=== PATIENT | female | born 1965 | race Caucasian/White ===

== ENCOUNTER 2023-04-18 15:14 | Inpatient (IN) | payer MEDICARE, MEDICAID, SELFPAY ==
--- NOTE | 2023-04-18 15:23 | ED.C_ITS ---
<Statement entered by Oswaldo Voss DO - 04/18/23 18:25> This patient was seen and managed by the physicians registered dental assistant rda. Per policy of this emergency department hospital I was notified of the patient's need for mental health admission. We did discuss the patient's hyponatremia and this was disclosed to the psychiatrist and a consultation was placed with the hospitalist to comanage. I placed bridge orders as well as transfer orders for this patient per hospital policy. I did not personally see or evaluate this patient however I do agree with the management as outlined in this chart. Documented by User: LAYLA Hilario 04/22/23 13:28 HPI - Psych 2 General: Chief Complaint: Psychiatric Symptoms Stated Complaint: mhe Time Seen by Provider: 04/18/23 15:15 Source: patient Mode of arrival: EMS Limitations: no limitations History of Present Illness: Patient is a 57-year-old female who presents to ED today from [facility] via EMS. Apparently [facility] called the ambulance. She has been at their facility for approximately 3 days. According to report patient is talking off the wall and off of her medications. They state she is manic and a ticking time bomb . They also states she has been somewhat verbally aggressive. Upon arrival patient tells me she has a paranoid schizophrenic. She states that her psychosis is making her psychotic. She says many bizarre things. She reports auditory and visual hallucinations. She talks about wanting meds for her ADHD stating her head and thoughts aren't right . complaint: altered mental status and other (psychosis) Onset (ago): day(s) Duration: constant History of same: Yes Context: recent drug abuse and not taking psychiatric medications Associated psychiatric symptoms: auditory hallucinations and visual hallucinations Associated symptoms: Reports auditory hallucinations and visual hallucinations; Deny depression, homicidal ideation or suicidal ideation Review of Systems 2 Const: Denies: fever(s) or chills Card: Denies: chest pain, palpitations, lightheadedness or syncope Resp: Denies: dyspnea GI: Denies: abdominal pain, nausea, vomiting or diarrhea Skin/Breast: Denies: rash Neuro: Denies: headache(s) Psych: Reports: anxiety, paranoia, visual hallucinations and auditory hallucinations; Denies: depression, hopelessness, suicidal ideation or homicidal ideation [facility] ED 2 PFSH: Medical History (Updated 04/20/23 @ 10:42 by Francois Mesa MD) Osteoarthritis Schizophrenia Surgical History (Updated 04/18/23 @ 19:34 by Vj Damon MD) History of facial surgery History of tonsillectomy Social History (Updated 04/18/23 @ 19:34 by Vj Damon MD) Smoking and tobacco/nicotine status: current every day tobacco/nicotine user Substance/Drug Use: current Other substance/drug use details: Marijuana, recently methamphetamine Physical Exam 2 Const: COMMON NORMALS: no acute distress, patient oriented x3, alert and well nourished GENERAL APPEARANCE: cooperative and appears older than stated age Resp: COMMON NORMALS: normal respiratory effort and clear to auscultation bilaterally AUSCULTATION: clear to auscultation bilaterally Cardio: COMMON NORMALS: regular rate and regular rhythm RATE: regular rate RHYTHM: regular rhythm Neuro: COMMON NORMALS: patient oriented x3 SENSORIUM/ORIENTATION: Yes alert Psych: COMMON NORMALS: mental status grossly normal, cooperative, denies homicidal ideation and denies suicidal ideation APPEARANCE: Yes grossly normal ATTITUDE: Yes bizarre and Yes agitated ACTIVITY/MOTOR BEHAVIOR: Yes appropriate eye contact and No psychomotor agitation SPEECH: Yes Pressured speech present THOUGHT PROCESS: Illogical thought process present A TTENTION/CONCENTRATION: Yes attention grossly impaired MEMORY/COGNITION: Yes memory grossly intact and Yes cognition grossly intact INSIGHT: Fair insight present (Psych) JUDGEMENT: Fair judgement present (Psych) Course 2 Consultations: Consultation #1: Dr. Paul-accepts to [facility] Vital Signs: Vital signs: Vital Signs Temperature 97.8 F 04/22/23 05:54 Pulse Rate 81 04/22/23 05:54 Respiratory Rate 18 04/22/23 05:54 Blood Pressure 115/83 04/22/23 05:54 Pulse Oximetry 95 04/22/23 05:54 Oxygen Delivery Me thod Room Air 04/22/23 05:54 [facility] - Psych Medical Decision Making This patient presented to this emergency department with longstanding history of bipolar disorder who was evaluated for mental health admission. She was noted to have an incidental hyponatremia which unlikely to be related to her current presentation however this will be comanaged by internal medicine and she will be admitted to the mental health services for management of her underlying mental health disorder. Patient will be an admit to NPU to Dr. Paul. I spoke to Dr. Damon who will consult on her given her hyponatremia at 122. Dr. Voss aware of patient and will place admit orders. ES Lab Data 04/18/23 16:02 04/22/23 09:03 Laboratory Results WBC 9.96 10^3/uL (3.29-11.43) 04/18/23 16:02 RBC 4.62 10^6/uL (3.85-5.65) 04/18/23 16:02 Hgb 15.20 g/dL (11.27-16.99) 04/18/23 16:02 Hct 43.0 % (36-47) 04/18/23 16:02 MCV 93.1 fl (85-98) 04/18/23 16:02 MCH 32.9 pg (27-33) 04/18/23 16:02 MCHC 35.3 g/dL (30-55) 04/18/23 16:02 RDW 12.0 % (12.1-15.1) L 04/18/23 16:02 Plt Count 336 10^3/cmm (157-399) 04/18/23 16:02 MPV 7.8 fL (7.4-10.4) 04/18/23 16:02 Neut % (Auto) 64.1 % 04/18/23 16:02 Lymph % (Auto) 26.5 % 04/18/23 16:02 Nash % (Auto) 6.4 % 04/18/23 16:02 Eos % (Auto) 1.6 % 04/18/23 16:02 Baso % (Auto) 1.0 % 04/18/23 16:02 Neut # (Auto) 6.38 10^3/uL (1.8-7.7) 04/18/23 16:02 Lymph # (Auto) 2.6 10^3/uL (0.8-4.8) 04/18/23 16:02 Nash # (Auto) 0.6 10^3/uL (0.2-0.9) 04/18/23 16:02 Eos # (Auto) 0.2 10^3/uL (0.0-0.8) 04/18/23 16:02 Baso # (Auto) 0.1 10^3/uL (0.0-0.1) 04/18/23 16:02 Nucleated RBC % (auto) 0 % 04/18/23 16:02 Nucleated RBCs # 0.0 /100WBC 04/18/23 16:02 Sodium 122 mmol/L (136-145) L 04/18/23 16:02 Potassium 4.5 mmol/L (3.5-5.1) 04/18/23 16:02 Chloride 85 mmol/L (98-107) L 04/18/23 16:02 Carbon Dioxide 26 mmol/L (22-29) 04/18/23 16:02 Anion Gap 15.5 (5-19) 04/18/23 16:02 BUN 7 mg/dL (6-20) 04/18/23 16:02 Creatinine 0.6 mg/dL (0.5-0.9) 04/18/23 16:02 GFR Calculation 102.3 mL/min (90-130) 04/18/23 16:02 Glucose 93 mg/dL (65-115) 04/18/23 16:02 Calculated Osmolality 252 mOsm/kg (285-295) L 04/18/23 16:02 Calcium 9.6 mg/dL (8.5-10.5) 04/18/23 16:02 Total Bilirubin 0.7 mg/dL (0.15-1.2) 04/18/23 16:02 AST 30 U/L (0-32) 04/18/23 16:02 ALT 12 U/L (0-33) 04/18/23 16:02 Alkaline Phosphatase 125 U/L (35-105) H 04/18/23 16:02 Total Protein 7.5 g/dL (6.6-8.7) 04/18/23 16:02 Albumin 4.6 g/dL (3.5-5.2) 04/18/23 16:02 Globulin 2.9 g/dL (1.3-4.6) 04/18/23 16:02 Salicylates < 0.3 mg/dL (3-10) L 04/18/23 16:02 Urine Opiates Screen Negative ng/mL (Negative) 04/18/23 15:46 Acetaminophen < 5.0 ug/mL (10-30) L 04/18/23 16:02 Ur Barbiturates Screen Negative ng/mL (Negative) 04/18/23 15:46 Ur Phencyclidine Scrn Negative ng/mL (Negative) 04/18/23 15:46 Ur Amphetamines Screen Negative ng/mL (Negative) 04/18/23 15:46 U Benzodiazepines Scrn Negative ng/mL (Negative) 04/18/23 15:46 Urine Cocaine Screen Negative ng/mL (Negative) 04/18/23 15:46 U Marijuana (THC) Screen Positive ng/mL (Negative) H 04/18/23 15:46 Ethyl Alcohol < 10 mg/dL (0-10) 04/18/23 16:02 Discharge Plan Discharge Patient Disposition: Admitted As Inpatient Admit Provider: Evelio Paul Clinical Impression: Acute psychosis, Hyponatremia Condition: Stable Coding Level of Care Code ED Account Executive for Chg Fwd Documented by User: Oswaldo Voss DO 04/18/23 18:28 HPI - Psych 2 General: Chief Complaint: Psychiatric Symptoms Stated Complaint: mhe Time Seen by Provider: 04/18/23 15:15 PFSH ED 2 PFSH: Medical History (Updated 04/20/23 @ 10:42 by Francois Mesa MD) Osteoarthritis Schizophrenia Surgical History (Updated 04/18/23 @ 19:34 by Vj Damon MD) History of facial surgery History of tonsillectomy Social History (Updated 04/18/23 @ 19:34 by Vj Damon MD) Smoking and tobacco/nicotine status: current every day tobacco/nicotine user Substance/Drug Use: current Other substance/drug use details: Marijuana, recently methamphetamine Course 2 Vital Signs: Vital signs: Vital Signs Temperature 97.8 F 04/22/23 05:54 Pulse Rate 81 04/22/23 05:54 Respiratory Rate 18 04/22/23 05:54 Blood Pressure 115/83 04/22/23 05:54 Pulse Oximetry 95 04/22/23 05:54 Oxygen Delivery Me thod Room Air 04/22/23 05:54 MDM - Psych Medical Decision Making This patient presented to this emergency department with longstanding history of bipolar disorder who was evaluated for mental health admission. She was noted to have an incidental hyponatremia which unlikely to be related to her current presentation however this will be comanaged by internal medicine and she will be admitted to the mental health services for management of her underlying mental health disorder. Lab Data 04/18/23 16:02 04/22/23 09:03 Laboratory Results WBC 9.96 10^3/uL (3.29-11.43) 04/18/23 16:02 RBC 4.62 10^6/uL (3.85-5.65) 04/18/23 16:02 Hgb 15.20 g/dL (11.27-16.99) 04/18/23 16:02 Hct 43.0 % (36-47) 04/18/23 16:02 MCV 93.1 fl (85-98) 04/18/23 16:02 MCH 32.9 pg (27-33) 04/18/23 16:02 MCHC 35.3 g/dL (30-55) 04/18/23 16:02 RDW 12.0 % (12.1-15.1) L 04/18/23 16:02 Plt Count 336 10^3/cmm (157-399) 04/18/23 16:02 MPV 7.8 fL (7.4-10.4) 04/18/23 16:02 Neut % (Auto) 64.1 % 04/18/23 16:02 Lymph % (Auto) 26.5 % 04/18/23 16:02 Nash % (Auto) 6.4 % 04/18/23 16:02 Eos % (Auto) 1.6 % 04/18/23 16:02 Baso % (Auto) 1.0 % 04/18/23 16:02 Neut # (Auto) 6.38 10^3/uL (1.8-7.7) 04/18/23 16:02 Lymph # (Auto) 2.6 10^3/uL (0.8-4.8) 04/18/23 16:02 Nash # (Auto) 0.6 10^3/uL (0.2-0.9) 04/18/23 16:02 Eos # (Auto) 0.2 10^3/uL (0.0-0.8) 04/18/23 16:02 Baso # (Auto) 0.1 10^3/uL (0.0-0.1) 04/18/23 16:02 Nucleated RBC % (auto) 0 % 04/18/23 16:02 Nucleated RBCs # 0.0 /100WBC 04/18/23 16:02 Sodium 122 mmol/L (136-145) L 04/18/23 16:02 Potassium 4.5 mmol/L (3.5-5.1) 04/18/23 16:02 Chloride 85 mmol/L (98-107) L 04/18/23 16:02 Carbon Dioxide 26 mmol/L (22-29) 04/18/23 16:02 Anion Gap 15.5 (5-19) 04/18/23 16:02 BUN 7 mg/dL (6-20) 04/18/23 16:02 Creatinine 0.6 mg/dL (0.5-0.9) 04/18/23 16:02 GFR Calculation 102.3 mL/min (90-130) 04/18/23 16:02 Glucose 93 mg/dL (65-115) 04/18/23 16:02 Calculated Osmolality 252 mOsm/kg (285-295) L 04/18/23 16:02 Calcium 9.6 mg/dL (8.5-10.5) 04/18/23 16:02 Total Bilirubin 0.7 mg/dL (0.15-1.2) 04/18/23 16:02 AST 30 U/L (0-32) 04/18/23 16:02 ALT 12 U/L (0-33) 04/18/23 16:02 Alkaline Phosphatase 125 U/L (35-105) H 04/18/23 16:02 Total Protein 7.5 g/dL (6.6-8.7) 04/18/23 16:02 Albumin 4.6 g/dL (3.5-5.2) 04/18/23 16:02 Globulin 2.9 g/dL (1.3-4.6) 04/18/23 16:02 Salicylates < 0.3 mg/dL (3-10) L 04/18/23 16:02 Urine Opiates Screen Negative ng/mL (Negative) 04/18/23 15:46 Acetaminophen < 5.0 ug/mL (10-30) L 04/18/23 16:02 Ur Barbiturates Screen Negative ng/mL (Negative) 04/18/23 15:46 Ur Phencyclidine Scrn Negative ng/mL (Negative) 04/18/23 15:46 Ur Amphetamines Screen Negative ng/mL (Negative) 04/18/23 15:46 U Benzodiazepines Scrn Negative ng/mL (Negative) 04/18/23 15:46 Urine Cocaine Screen Negative ng/mL (Negative) 04/18/23 15:46 U Marijuana (THC) Screen Positive ng/mL (Negative) H 04/18/23 15:46 Ethyl Alcohol < 10 mg/dL (0-10) 04/18/23 16:02 No radiology studies performed this visit Discharge Plan Discharge Patient Disposition: Admitted As Inpatient Admit Provider: Evelio Paul Clinical Impression: Acute psychosis, Hyponatremia Condition: Stable Coding Level of Care Code ED Account Executive for Simran Dugan
[2023-04-18 15:32] VITALS: BP 175/120; PULSE 97; RESP 16; TEMP 36.8; O2SAT 98
[2023-04-18 16:11] LABS: Amphetamines Screen Urine Negative (Negative); Barbiturates Screen Urine Negative (Negative); Benzodiazepines Screen Urine Negative (Negative); Cocaine Screen Urine Negative (Negative); Opiate Screen Urine Negative (Negative); PCP Screen Urine Negative (Negative); THC Screen Urine Positive (Negative)
--- NOTE | 2023-04-18 16:21 | PC.PHAR ---
[facility] STAFF STATED PT HAS NOT TAKEN ANY MEDICATION IN THE 3 DAYS SHE HAS BEEN THERE. I PHONED [facility] AND VERIFIED THE MEDICATIONS SHE PICKED UP IN THE LAST 2 MONTHS AND NOTED DATES AND QUANITIES ON HER MED LIST. 04/18/23
[2023-04-18 16:26] LABS: Basophils # 0.1 10^3/uL (0.0-0.1); Eosinophils # 0.2 10^3/uL (0.0-0.8); Eosinophils % 1.6 %; Lymphocytes # 2.6 10^3/uL (0.8-4.8); Lymphocytes % 26.5 %; Mean Corpuscular HGB Conc 35.3 g/dL (30-55); Mean Corpuscular Hemoglobin 32.9 pg (27-33); Mean Corpuscular Volume 93.1 fl (85-98); Mean Platelet Volume 7.8 fL (7.4-10.4); Monocytes # 0.6 10^3/uL (0.2-0.9); Monocytes % 6.4 %; Neutrophils # 6.38 10^3/uL (1.8-7.7); Neutrophils % 64.1 %; Nucleated Red Blood Cells % 0 %; Platelet Count 336 10^3/cmm (157-399); Red Blood Count 4.62 10^6/uL (3.85-5.65); White Blood Count 9.96 10^3/uL (3.29-11.43)
[2023-04-18 16:38] LABS: Alanine Aminotransferase 12 U/L (0-33); Albumin Level 4.6 g/dL (3.5-5.2); Alkaline Phosphatase 125 U/L (35-105); Anion Gap 15.5 (5-19); Aspartate Amino Transferase 30 U/L (0-32); Blood Urea Nitrogen 7 mg/dL (6-20); Calcium 9.6 mg/dL (8.5-10.5); Carbon Dioxide 26 mmol/L (22-29); Chloride 85 mmol/L (98-107); Globulin 2.9 g/dL (1.3-4.6); Glomerular Filtration Rate 102.3 mL/min (90-130); Glucose 93 mg/dL (65-115); Osmolality Calculated 252 mOsm/kg (285-295); Potassium 4.5 mmol/L (3.5-5.1); Sodium 122 mmol/L (136-145); Total Bilirubin 0.7 mg/dL (0.15-1.2); Total Protein 7.5 g/dL (6.6-8.7)
[2023-04-18 16:40] LABS: Acetaminophen < 5.0 ug/mL (10-30); Alcohol Level < 10 mg/dL (0-10); Salicylate < 0.3 mg/dL (3-10)
[2023-04-18 17:16] VITALS: BP 163/77; PULSE 71; RESP 16; TEMP 36.7; O2SAT 96
[2023-04-18 17:45] VITALS: BP 146/91
[2023-04-18] MEDS: ibuprofen 600 mg Tablet PO (19:18)
--- NOTE | 2023-04-18 19:23 | P.CONIM_ITS ---
Providers/Reason For Consult 2 Consulting Physician/Specialty*: Dr Paul, psychiatry Reason for Consult*: hyponatremia Attending Physician: Evelio Paul MD History of Present Illness History of Present Illness Derek Smalls is a 57 year old lady with history of schizophrenia, denies bipolar disorder, methamphetamine use disorder, undergoing rehabilitation at [facility], states that she has not had any in 2 months, but did not seek rehabilitation earlier due to being jailed. Was sent over for evaluation reportedly due to manic symptoms, bizarre ideation, and has not been taking her medications. Hospitalist is consulted by ER due to incidentally noted hyponatremia, sodium 122. She denies being aware of history of hyponatremia in the past. She does state that her appetite has not been good recently, she states any food that she did not think would taste good at [facility] she will just throw in the trash. She has been drinking quite a bit of Mountain Dew. She also states that in the past she used to take 2 mg of digoxin, but here more recently she has been on 5 mg. Review of Systems 2 Const: Denies: fever(s), chills, body aches or malaise ENMT: Denies: throat pain Card: Denies: chest pain, edema, pre-syncope or dyspnea on exertion Resp: Denies: dyspnea, productive cough, change in phlegm color or hemoptysis GI: Denies: abdominal pain, nausea, vomiting, diarrhea, constipation, hematochezia or melena : Denies: flank pain, urinary frequency or hematuria Musc: Denies: back pain, joint swelling or joint redness Skin/Breast: Denies: rash or new lesions Neuro: Denies: headache(s) Medications/Allergies Home Medications Medication Instructions Recorded Confirmed Last Taken Type albuterol sulfate 90 mcg/actuation 2 inh inhalation Q6H PRN Shortness 04/18/23 04/18/23 Unknown History aerosol inhaler Of Breath benztropine 1 mg tablet 1 mg PO BID 04/18/23 04/18/23 Unknown History clonazepam 1 mg tablet 1 mg PO BID 04/18/23 04/18/23 Unknown History pravastatin 10 mg tablet 10 mg PO BEDTIME 04/18/23 04/18/23 Unknown History thiothixene 5 mg capsule 5 mg PO TID 04/18/23 04/18/23 Unknown History Allergies Allergy/AdvReac Type Severity Reaction Status Date / Time acetaminophen [From Talacen] Allergy Unknown Unverified 04/18/23 19:20 pentazocine [From Talacen] Allergy Unknown Unverified 04/18/23 19:20 topiramate [From Topamax] Allergy Unknown Unverified 04/18/23 19:20 ibuprofen AdvReac Mild Ulcers Unverified 04/18/23 19:20 Current Medications Generic Name Dose Route Start Last Admin Trade Name Freq PRN Reason Stop Dose Admin Ibuprofen 600 mg 04/18/23 18:29 04/18/23 19:18 Ibuprofen 600 Mg Tablet PO 600 mg Q6H PRN Administration MODERATE PAIN PFSH Acute 2 PFSH: Medical History (Updated 04/18/23 @ 19:32 by Vj Damon MD) Osteoarthritis Schizophrenia Surgical History (Updated 04/18/23 @ 19:34 by Vj Damon MD) History of facial surgery History of tonsillectomy Social History (Updated 04/18/23 @ 19:34 by Vj Damon MD) Smoking and tobacco/nicotine status: current every day tobacco/nicotine user Substance/Drug Use: current Other substance/drug use details: Marijuana, recently methamphetamine Vitals/I&O/Wt Last Vital Signs Temp 98.0 F 04/18/23 17:16 Pulse 71 04/18/23 17:16 Resp 16 04/18/23 17:16 BP 146/91 04/18/23 17:45 Pulse Ox 96 04/18/23 17:16 O2 Del Method Room Air 04/18/23 17:16 Physical Exam 2 Narrative: Sitting up in bed. Finishing up admission conversation with nursing staff. Const: COMMON NORMALS: patient oriented x3 and alert GENERAL APPEARANCE: c ooperative ORIENTATION/CONSCIOUSNESS: Yes awake HENMT: COMMON NORMALS: oropharynx normal Neck/C-Spine: COMMON NORMALS: no JVD Resp: COMMON NORMALS: normal respiratory effort and clear to auscultation bilaterally AUSCULTATION: clear to auscultation bilaterally Cardio: COMMON NORMALS: no JVD, regular rhythm, S1 normal heart sound present, S2 normal heart sound present and No murmurs present (Cardio) RHYTHM: regular rhythm HEART SOUNDS: S1 normal heart sound present and S2 normal heart sound present GI: INSPECTION: No abdominal distension Neuro: COMMON NORMALS: patient oriented x3 and moves all extremities S ENSORIUM/ORIENTATION: Yes alert Data 04/18/23 16:02 04/18/23 16:02 A&P Assessment and plan (1) Acute psychosis: Being admitted by psychiatry for additional assessment and management. (2) Hyponatremia: Incidentally noted severe hyponatremia, 122. Appears asymptomatic. Discussed with her risks of hyponatremia. Reviewed vitals, CBC, CMP, UDS. Reviewed ER PA and physician notes, discussed with ER provider. Seems possibly combination of low solute diet as she has not had good appetite, has been drinking a lot of Mountain Dew, possible SIADH with thiothixene. She states her dose was recently increased up to 5 mg, previously taking 2 mg. Recommend caution with antipsychotics, will monitor sodium. Regular diet. Nutritional supplements as tolerating. Discussed with her sodium chloride tablets. Avoid overly rapid sodium rise due to unknown chronicity. Risk of ODS. Will follow-up sodium level. Discouraged excessive liquid consumption alone. Plan Smoking addiction: Encourage cessation. She request for nicotine patch. Ordered. Lozenges as needed. Diagnoses Acute psychosis F23 Hyponatremia E87.1
[2023-04-18] MEDS: nicotine 4 mg lozenge MUCOUS MEM (20:22)
[2023-04-18] MEDS: sodium chloride 1 gm Tablet PO (20:33)
[2023-04-18] MEDS: CLONazepam 1 mg Tablet PO (20:33)
[2023-04-18] MEDS: atorvastatin 40 mg Tablet 20 MG PO (20:33)
[2023-04-18 21:08] VITALS: PULSE 67; RESP 18; TEMP 36.6; O2SAT 96
--- NOTE | 2023-04-18 21:30 | PC.NURSE ---
Pt on assessment started making bizarre statements such [facility] they took my tentacle and shoved it up my nostril because they didnt want me to take it off my leg. Pt denies avh right now but admits that when her psychosis gets out of control the voices start getting louder. Pt took her HS meds then laid down in room. no distress noted.
[2023-04-19 06:00] VITALS: BP 103/66; PULSE 118; RESP 16; O2SAT 96
[2023-04-19] MEDS: ibuprofen 600 mg Tablet PO ×3 (06:16→20:17)
[2023-04-19] MEDS: nicotine 4 mg lozenge MUCOUS MEM ×2 (06:24→16:59)
[2023-04-19] MEDS: magnesium hydroxide 30 mL UDC PO (06:47)
[2023-04-19] MEDS: benztropine 1 mg Tablet PO ×2 (07:10→17:35)
[2023-04-19] MEDS: sodium chloride 1 gm Tablet PO ×2 (07:11→17:35)
[2023-04-19] MEDS: CLONazepam 1 mg Tablet PO ×2 (07:11→17:35)
[2023-04-19 08:00] LABS: Urine Random Sodium 16 mmol/L
[2023-04-19] MEDS: nicotine 21 mg Patch 1 PATCH TRANSDERMA (08:41)
--- NOTE | 2023-04-19 10:18 | PC.NURSE ---
CALLED AND LEFT MESSAGE WITH [facility] FOR PT HOME MEDICATION. WAITING FOR CALL BACK.
[2023-04-19] MEDS: acetaminophen 325 mg Tablet 650 MG PO ×2 (10:43→16:18)
--- NOTE | 2023-04-19 10:57 | PC.NURSE ---
RECIEVED CALL FROM [facility] SPECIALIST MALVIN PEREZ FROM [facility] ABOUT PT MEDICATION THIOTHIXENE 10MG TID PRESCRIBED BY DR. LEWIS. IF WE CAN SEND A STAFF MEMBER TO SIGN OUT MEDICATION TO BRING TO HOSPITAL THAT WOULD BE ACCEPTABLE TO THEIR FACILITY. SENDING PLASTIC PARTS FABRICATOR TO [facility].
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
[2023-04-19 14:00] VITALS: BP 137/92; PULSE 71; RESP 16; TEMP 36.8; O2SAT 97
--- NOTE | 2023-04-19 14:16 | P.PN_ITS ---
Subjective 2 Subjective: She states she is doing well. She had a good night and got some rest. Ambulating in the hallway. Denies any new symptoms. Vitals/I&O/Wt Last Vital Signs Temp 97.8 F 04/18/23 21:08 Pulse 118 H 04/19/23 06:00 Resp 16 04/19/23 06:00 BP 103/66 04/19/23 06:00 Pulse Ox 96 04/19/23 06:00 O2 Del Method Room Air 04/18/23 18:32 Physical Exam 2 Const: COMMON NORMALS: patient oriented x3 and alert GENERAL APPEARANCE: c ooperative ORIENTATION/CONSCIOUSNESS: Yes awake HENMT: COMMON NORMALS: oropharynx normal Neuro: COMMON NORMALS: patient oriented x3 and moves all extremities S ENSORIUM/ORIENTATION: Yes alert Data 04/18/23 16:02 04/18/23 16:02 A&P Assessment and plan (1) Acute psychosis: Being admitted by psychiatry for additional assessment and management. (2) Hyponatremia: Still appears asymptomatic. Reviewed this morning's blood draw clotted off. Repeat lab obtained, reviewed. Received results sodium is 118. Reviewing her medications and psychiatry note, looks like she was restarted on the same dose of thiothixene. Discussed with psychiatrist, current medication will be sought. Reviewed urine sodium, returning low at 16, again likely secondary to low solute intake. Increase sodium chloride tablets to 2 g daily. Will additionally start her on 15 g of urea, recheck sodium tonight before the morning check. Seems possibly combination of low solute diet as she has not had good appetite, has been drinking a lot of Mountain Dew, possible SIADH with thiothixene. She states her dose was recently increased up to 5 mg, previously taking 2 mg. Recommend caution with antipsychotics, will monitor sodium. Regular diet. Nutritional supplements as tolerating. Avoid overly rapid sodium rise due to unknown chronicity. Risk of ODS. Will follow-up sodium level. Discouraged excessive liquid consumption alone. Plan Smoking addiction: Encourage cessation. She request for nicotine patch. Ordered. Lozenges as needed. Attestations 2 Medical Necessity Statement*: Continue admission for assessment and management of acute psychosis, severe hyponatremia. Diagnoses Acute psychosis F23 Hyponatremia E87.1
[2023-04-19 14:46] LABS: Alanine Aminotransferase 14 U/L (0-33); Alkaline Phosphatase 108 U/L (35-105); Blood Urea Nitrogen 6 mg/dL (6-20); Calcium 9.1 mg/dL (8.5-10.5); Carbon Dioxide 25 mmol/L (22-29); Chloride 86 mmol/L (98-107); Globulin 2.3 g/dL (1.3-4.6); Glomerular Filtration Rate 102.3 mL/min (90-130); Glucose 81 mg/dL (65-115); Osmolality Calculated 243 mOsm/kg (285-295); Total Bilirubin 0.5 mg/dL (0.15-1.2); Total Protein 6.3 g/dL (6.6-8.7)
[2023-04-19 14:54] LABS: Aspartate Amino Transferase 45 U/L (0-32)
[2023-04-19 14:56] LABS: Sodium 118 mmol/L (136-145)
--- NOTE | 2023-04-19 15:09 | PC.NURSE ---
notified DR. Colon AND DR. LANTIGUA OF PT SODIUM LEVEL BEING 118. DR. COLON DISCONTINUED THIOTHIXENE 5MG PO.
[2023-04-19] MEDS: OLANZapine 5 mg ODT PO (15:22)
[2023-04-19] MEDS: urea 15 gm Powder PO (15:26)
[2023-04-19] MEDS: haloperidol 5 mg Tablet PO (16:19)
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
[2023-04-19 19:34] VITALS: BP 138/89; PULSE 67; RESP 17; TEMP 36.7; O2SAT 96
[2023-04-19] MEDS: atorvastatin 40 mg Tablet 20 MG PO (20:14)
[2023-04-19 21:07] LABS: Sodium 125 mmol/L (136-145)
[2023-04-20 06:00] VITALS: BP 100/58; PULSE 100; RESP 18; TEMP 36.7; O2SAT 94
[2023-04-20] MEDS: nicotine 4 mg lozenge MUCOUS MEM ×8 (06:30→21:35)
[2023-04-20] MEDS: CLONazepam 1 mg Tablet PO ×2 (07:51→17:09)
[2023-04-20] MEDS: benztropine 1 mg Tablet PO ×2 (07:51→17:09)
[2023-04-20] MEDS: sodium chloride 1 gm Tablet PO ×2 (07:52→17:09)
[2023-04-20] MEDS: ibuprofen 600 mg Tablet PO ×3 (07:58→21:34)
--- NOTE | 2023-04-20 11:03 | P.NPUPN_ITS ---
Subjective NPU 2 Subjective: Patient presented today reporting that she is feeling all right. She then had some fairly significant outbursts where she was frustrated about not getting her thiothixene even though explained concerns that it was leading to her significant hyponatremia. We discussed the risks, benefits and alternatives of Geodon and seeing if that would have less of an impact on her sodium and she understood and agreed to proceed as is documented in this note. We discussed the fact that we would not be able to talk about discharge until her sodium was at a safe place with most recent lab result 125. Mental Status Exam 2 MSE Comments: This is a overweight white female looking older than her stated age in hospital scrubs with limited grooming and eye contact. No abnormal movements except for psychomotor agitation. Somewhat cooperative with exam in mild to moderate distress. Speech was normal rate increased volume. Mood described as not good, affect congruent. Thought process linear. Thought content: Patient denied suicidal or homicidal ideation, there were no delusions reported but likely paranoia and persecutory delusions noted, she endorsed having some auditory and visual hallucinations. Attention and concentration were limited and memory seem to mostly reliable but none were formally tested. She is alert and oriented times person and place. Insight, judgment and impulse control are impaired. Vitals/I&O/Wt Last Vital Signs Temp 98.0 F 04/20/23 06:00 Pulse 100 04/20/23 06:00 Resp 18 04/20/23 06:00 BP 100/58 04/20/23 06:00 Pulse Ox 94 04/20/23 06:00 O2 Del Method Room Air 04/20/23 06:00 Weight last 48 hrs Weight 60.838 kg Data NPU 04/18/23 16:02 04/21/23 07:26 A&P Assessment and plan (1) Acute psychosis: (2) Hyponatremia: (3) History of schizophrenia: Plan This is a 57-year-old white female with a long history of psychosis and reported schizophrenia with genetic loading for mental health and addiction issues who presents reporting having been on her medication but looking like she has not been taking it regularly based on the numbers with significant hyponatremia and confusion. Symptoms. 1. Encourage individual, group and milieu therapy. 2. Recommend sober living treatment at the highest level of care to which the patient is willing to commit. 3. Continue q-15 minute checks for safety.? 4.? Continue current medication. Except discontinued thiothixene and started Geodon 20 mg daily with a plan to titrate to effect. 5.? Appreciate hospitalist consult and will follow recommendations for treatment of her hyponatremia as indicated. Involuntary Hold Information 2 96 Hour Hold: 96 Hour Involuntary Admission: No Attestations NPU 2 Medical Necessity Statement*: Inpatient hospitalization is medically necessary and deemed to be the clinically appropriate intervention at this time. The patient will be evaluated and medications will be initiated and titrated upwards as clinically indicated. His likely length of stay is 3-5 days. Coding Level of Care Code Acute Code for g Fwd Diagnoses Acute psychosis F23 Hyponatremia E87.1 History of schizophrenia Z86.59
[2023-04-20] MEDS: OLANZapine 5 mg ODT PO (11:11)
[2023-04-20 14:00] VITALS: BP 165/103; PULSE 68; RESP 16; TEMP 36.8; O2SAT 99
[2023-04-20] MEDS: acetaminophen 325 mg Tablet 650 MG PO (14:06)
--- NOTE | 2023-04-20 14:27 | P.PN_ITS ---
Subjective 2 Subjective: Appetite has not been the best but she ate about half of her meal today. She states she was not quite honest and did not take her thiothixene quite as prescribed, and that she was taking it only maybe once daily. She states she has been hearing voices, up to 10 different ones. Vitals/I&O/Wt Last Vital Signs Temp 98.0 F 04/20/23 06:00 Pulse 100 04/20/23 06:00 Resp 18 04/20/23 06:00 BP 100/58 04/20/23 06:00 Pulse Ox 94 04/20/23 06:00 O2 Del Method Room Air 04/20/23 06:00 Weight last 48 hrs Weight 60.838 kg Physical Exam 2 Const: COMMON NORMALS: patient oriented x3 and alert GENERAL APPEARANCE: c ooperative ORIENTATION/CONSCIOUSNESS: Yes awake HENMT: COMMON NORMALS: oropharynx normal Neuro: COMMON NORMALS: patient oriented x3 and moves all extremities S ENSORIUM/ORIENTATION: Yes alert Data 04/18/23 16:02 04/19/23 20:30 A&P Assessment and plan (1) Acute psychosis: Being assessed and managed by psychiatry for additional assessment and management. (2) Hyponatremia: Appetite not the best but she did try Her meal today. Encouraged her to try to improve oral intake. Added protein shakes. Sodium reviewed, noted with improvement up to 125. Continue sodium chloride, urea for treatment of severe hyponatremia, follow-up sodium levels. Discussed with psychiatry as well to be mindful of antipsychotics contributing to hyponatremia. She states that she was not quite honest about taking her thiothixene and was taking it only maybe once a day. At this time suspect mostly her hyponatremia is likely secondary to low solute diet. However, continue to monitor. Reviewed psychiatry note. Recheck chemistry requested. Continues with admission. Reviewed pillowcase folder note. Avoid overly rapid sodium rise due to unknown chronicity. Risk of ODS. Will follow-up sodium level. Discouraged excessive liquid consumption alone. Plan Smoking addiction: Encourage cessation. Nicotine patch, lozenges as needed. Attestations 2 Medical Necessity Statement*: Continue admission for assessment management of psychosis, severe hyponatremia. Diagnoses Acute psychosis F23 Hyponatremia E87.1
[2023-04-20] MEDS: ziprasidone hcl 20 mg Capsule PO (14:32)
[2023-04-20 19:32] VITALS: BP 122/82; PULSE 70; RESP 16; TEMP 36.3; O2SAT 95
[2023-04-20] MEDS: atorvastatin 40 mg Tablet 20 MG PO (19:37)
[2023-04-20] MEDS: efferdent effervescent 1 EACH DENTAL (20:59)
[2023-04-20] MEDS: trazodone 50 mg Tablet PO (21:47)
[2023-04-20] MEDS: hyDROXYzine 25 mg Capsule 50 MG PO (22:03)
[2023-04-21] MEDS: nicotine 4 mg lozenge MUCOUS MEM ×7 (05:55→22:08)
[2023-04-21] MEDS: fixodent 39 gm Tube 1 APPLIC DENTAL (05:57)
[2023-04-21 06:00] VITALS: BP 103/71; PULSE 118; RESP 18; O2SAT 96
[2023-04-21] MEDS: hyDROXYzine 25 mg Capsule 50 MG PO (06:14)
[2023-04-21] MEDS: sodium chloride 1 gm Tablet PO ×3 (07:59→19:38)
[2023-04-21] MEDS: benztropine 1 mg Tablet PO ×2 (07:59→17:39)
[2023-04-21] MEDS: ibuprofen 600 mg Tablet PO ×2 (08:00→16:14)
[2023-04-21] MEDS: CLONazepam 1 mg Tablet PO ×2 (08:00→17:39)
--- NOTE | 2023-04-21 08:00 | PC.NURSE ---
shift assessment pleasant affect, stated she is not SI/HI but did say she's tired of the voices all the time
[2023-04-21 08:06] LABS: Alanine Aminotransferase 16 U/L (0-33); Albumin Level 4.7 g/dL (3.5-5.2); Alkaline Phosphatase 118 U/L (35-105); Blood Urea Nitrogen 9 mg/dL (6-20); Calcium 10.2 mg/dL (8.5-10.5); Carbon Dioxide 24 mmol/L (22-29); Chloride 90 mmol/L (98-107); Globulin 2.3 g/dL (1.3-4.6); Glomerular Filtration Rate 85.6 mL/min (90-130); Glucose 101 mg/dL (65-115); Osmolality Calculated 259 mOsm/kg (285-295); Sodium 125 mmol/L (136-145); Total Bilirubin 0.4 mg/dL (0.15-1.2)
[2023-04-21 08:12] LABS: Anion Gap 16.1 (5-19); Aspartate Amino Transferase 39 U/L (0-32); Potassium 5.1 mmol/L (3.5-5.1)
--- NOTE | 2023-04-21 09:54 | P.NPUPN_ITS ---
Subjective NPU 2 Subjective: Patient presented today reporting that she is feeling like things are going better. She continues to be frustrated with the medication change reported she has been on the thiothixene for 3 decades. We discussed the continued hyponatremia of unknown etiology and she frustratingly said that we should return to thiothixene and just let her take salt tablets. We discussed that she was struggling with adherence with the thiothixene so depending on her to take a salt tablet to have her sodium be in an even reasonable place would not be acceptable. Plus we discussed that given her lack of adherence to the thiothixene is a somewhat limited chance that it is the cause but definitely not the sole cause of this challenge. Mental Status Exam 2 MSE Comments: This is a overweight white female looking older than her stated age in hospital scrubs with limited grooming and eye contact. No abnormal movements except for psychomotor agitation. Somewhat cooperative with exam in mild distress. Speech was normal rate and volume. Mood described as a little better, affect congruent. Thought process linear. Thought content: Patient denied suicidal or homicidal ideation, there were no delusions reported but likely paranoia and persecutory delusions noted, she endorsed having some auditory and visual hallucinations. Attention and concentration were limited and memory seem to mostly reliable but none were formally tested. She is alert and oriented times person and place. Insight, judgment and impulse control are impaired. Vitals/I&O/Wt Last Vital Signs Temp 97.3 F L 04/20/23 19:32 Pulse 118 H 04/21/23 06:00 Resp 18 04/21/23 06:00 BP 103/71 04/21/23 06:00 Pulse Ox 96 04/21/23 06:00 O2 Del Method Room Air 04/20/23 14:00 Weight last 48 hrs Weight 60.838 kg Data NPU 04/18/23 16:02 04/21/23 07:26 A&P Assessment and plan (1) Acute psychosis: (2) Hyponatremia: (3) History of schizophrenia: Plan This is a 57-year-old white female with a long history of psychosis and reported schizophrenia with genetic loading for mental health and addiction issues who presents reporting having been on her medication but looking like she has not been taking it regularly based on the numbers with significant hyponatremia and confusion. Symptoms. 1. Encourage individual, group and milieu therapy. 2. Recommend sober living treatment at the highest level of care to which the patient is willing to commit. 3. Continue q-15 minute checks for safety.? 4.? Continue current medication. Except discontinued thiothixene and start Geodon 20 mg p.o. twice daily with a plan to titrate to effect. 5.? Appreciate hospitalist consult and will follow recommendations for treatment of her hyponatremia as indicated. Involuntary Hold Information 2 96 Hour Hold: 96 Hour Involuntary Admission: No Attestations NPU 2 Medical Necessity Statement*: Inpatient hospitalization is medically necessary and deemed to be the clinically appropriate intervention at this time. The patient will be evaluated and medications will be initiated and titrated upwards as clinically indicated. His likely length of stay is 3-5 days. Coding Level of Care Code Acute Code for [facility] Diagnoses Acute psychosis F23 Hyponatremia E87.1 History of schizophrenia Z86.59
[2023-04-21 11:48] LABS: Potassium, Radom Urine 23 mmol/L
[2023-04-21 11:51] LABS: Urine Random Chloride 17 mmol/L; Urine Random Sodium 15 mmol/L
[2023-04-21 14:00] VITALS: BP 121/72; PULSE 86; RESP 16; TEMP 36.6; O2SAT 97
--- NOTE | 2023-04-21 15:40 | PC.NURSE ---
CONTACT INFO MIRTA REIS (SON) [phone] SON MIRTA LIVES IN [place], STATED HIS MOM HAS BEEN LIKE THIS ALL HIS LIFE, DRINKING & TAKING ANY PILLS SHE CAN GET HER HANDS ON TO GET A HIGH SAID SHE'S BEEN TO SEVERAL HOSPITALS INCLUDING [facility], [facility], [facility]. SON STATED HE FEELS LIKE HIS MOM JUMPS FROM DOCTOR TO DOCTOR TO GET THE PILLS SHE WANTS, NEVER GIVING THE SAME STORY TO EACH FACILITY SHE'S VISITED. WOULD LIKE US TO REACH OUT AND REQUEST RECORDS FROM OTHER HOSPITALS TO GET COLLABORATIVE INFORMATION & GET HER ON THE RIGHT MEDS SHE NEEDS. OFFERED TO LET SON SPEAK TO [employer], HE DENIED WANTING TO LEAVE THEM A MESSAGE AT THIS TIME.
[2023-04-21] MEDS: acetaminophen 325 mg Tablet 650 MG PO (18:30)
[2023-04-21] MEDS: atorvastatin 40 mg Tablet 20 MG PO (19:38)
[2023-04-21 19:39] VITALS: BP 136/93; PULSE 79; RESP 18; TEMP 36.6; O2SAT 99
[2023-04-22 05:54] VITALS: BP 115/83; PULSE 81; RESP 18; TEMP 36.6; O2SAT 95
[2023-04-22] MEDS: nicotine 4 mg lozenge MUCOUS MEM ×6 (06:00→19:32)
[2023-04-22] MEDS: fixodent 39 gm Tube 1 APPLIC DENTAL (06:17)
[2023-04-22] MEDS: ibuprofen 600 mg Tablet PO ×2 (06:35→14:56)
[2023-04-22] MEDS: ziprasidone hcl 20 mg Capsule PO ×2 (07:05→17:06)
[2023-04-22] MEDS: benztropine 1 mg Tablet PO ×2 (07:05→17:06)
[2023-04-22] MEDS: CLONazepam 1 mg Tablet PO ×2 (07:05→17:06)
[2023-04-22] MEDS: sodium chloride 1 gm Tablet PO ×3 (07:05→19:32)
--- NOTE | 2023-04-22 07:31 | P.NPUPN_ITS ---
Subjective NPU 2 Subjective: Patient presented today reporting that she is doing a little better. She reports that she wants to get out of here sooner rather than later and return to [facility]. We discussed as getting in a better direction with her sodium being 127 but they are still being room to go. She denied any issues with the Geodon and we discussed that we would consider titrating prior to her leaving back to [facility]. She denied any other issues. Mental Status Exam 2 MSE Comments: This is a overweight white female looking older than her stated age in hospital scrubs with limited grooming and eye contact. No abnormal movements except for psychomotor agitation. Somewhat cooperative with exam in mild distress. Speech was normal rate and volume. Mood described as a little better, affect congruent. Thought process linear. Thought content: Patient denied suicidal or homicidal ideation, there were no delusions reported but likely paranoia and persecutory delusions noted, she endorsed having some auditory and visual hallucinations. Attention and concentration were limited and memory seem to mostly reliable but none were formally tested. She is alert and oriented times person and place. Insight, judgment and impulse control are impaired. Vitals/I&O/Wt Last Vital Signs Temp 97.8 F 04/22/23 05:54 Pulse 81 04/22/23 05:54 Resp 18 04/22/23 05:54 BP 115/83 04/22/23 05:54 Pulse Ox 95 04/22/23 05:54 O2 Del Method Room Air 04/22/23 05:54 Data NPU 04/18/23 16:02 04/23/23 07:05 A&P Assessment and plan (1) Acute psychosis: (2) Hyponatremia: (3) History of schizophrenia: Plan This is a 57-year-old white female with a long history of psychosis and reported schizophrenia with genetic loading for mental health and addiction issues who presents reporting having been on her medication but looking like she has not been taking it regularly based on the numbers with significant hyponatremia and confusion. Symptoms. 1. Encourage individual, group and milieu therapy. 2. Recommend sober living treatment at the highest level of care to which the patient is willing to commit. 3. Continue q-15 minute checks for safety.? 4.? Continue current medication. Except discontinued thiothixene and start Geodon 20 mg p.o. twice daily with a plan to titrate to effect. 5.? Appreciate hospitalist consult and will follow recommendations for treatment of her hyponatremia as indicated. Involuntary Hold Information 2 96 Hour Hold: 96 Hour Involuntary Admission: No Attestations NPU 2 Medical Necessity Statement*: Inpatient hospitalization is medically necessary and deemed to be the clinically appropriate intervention at this time. The patient will be evaluated and medications will be initiated and titrated upwards as clinically indicated. His likely length of stay is 2-4 days. Coding Level of Care Code Acute Code for [facility] Diagnoses Acute psychosis F23 Hyponatremia E87.1 History of schizophrenia Z86.59
[2023-04-22] MEDS: urea 15 gm Powder PO (07:50)
[2023-04-22 09:40] LABS: Alanine Aminotransferase 14 U/L (0-33); Albumin Level 4.7 g/dL (3.5-5.2); Alkaline Phosphatase 109 U/L (35-105); Anion Gap 16.4 (5-19); Aspartate Amino Transferase 31 U/L (0-32); Blood Urea Nitrogen 22 mg/dL (6-20); Calcium 10.1 mg/dL (8.5-10.5); Carbon Dioxide 26 mmol/L (22-29); Chloride 89 mmol/L (98-107); Globulin 2.6 g/dL (1.3-4.6); Glomerular Filtration Rate 102.3 mL/min (90-130); Glucose 97 mg/dL (65-115); Osmolality Calculated 267 mOsm/kg (285-295); Potassium 4.4 mmol/L (3.5-5.1); Sodium 127 mmol/L (136-145); Total Bilirubin 0.3 mg/dL (0.15-1.2); Total Protein 7.3 g/dL (6.6-8.7)
[2023-04-22] MEDS: acetaminophen 325 mg Tablet 650 MG PO ×2 (12:09→17:06)
[2023-04-22 14:00] VITALS: BP 124/68; PULSE 81; RESP 20; TEMP 37; O2SAT 98
--- NOTE | 2023-04-22 18:19 | XRR_ITS ---
PROCEDURE INFORMATION: Exam: XR Left Hip Exam date and time: 04/22/2023 7:29 PM Age: 57 years old Clinical indication: Hip pain; Left hip TECHNIQUE: Imaging protocol: Radiologic exam of the left hip. Views: 2 or 3 views hip with pelvis when performed. COMPARISON: No relevant prior studies available. FINDINGS: Bones/joints: No acute fracture or dislocation. Small inferior femoroacetabular osteophytes. Soft tissues: Unremarkable. XR/XR hip LT 2-3V wo/w pel* [id number] IMPRESSION: No acute fracture or dislocation. Mild left hip osteoarthritis.
[2023-04-22] MEDS: atorvastatin 40 mg Tablet 20 MG PO (19:32)
[2023-04-22 19:56] VITALS: BP 163/94; PULSE 106; RESP 16; TEMP 36.7; O2SAT 97
[2023-04-23] MEDS: ibuprofen 600 mg Tablet PO ×2 (04:59→18:20)
[2023-04-23] MEDS: fixodent 39 gm Tube 1 APPLIC DENTAL (05:01)
[2023-04-23] MEDS: nicotine 4 mg lozenge MUCOUS MEM ×6 (06:53→20:17)
[2023-04-23] MEDS: acetaminophen 325 mg Tablet 650 MG PO (07:13)
[2023-04-23] MEDS: urea 15 gm Powder PO (07:14)
[2023-04-23] MEDS: sodium chloride 1 gm Tablet PO ×3 (07:14→20:17)
[2023-04-23] MEDS: ziprasidone hcl 20 mg Capsule PO (07:14)
[2023-04-23] MEDS: benztropine 1 mg Tablet PO ×2 (07:14→17:37)
[2023-04-23] MEDS: CLONazepam 1 mg Tablet PO ×2 (07:17→18:06)
[2023-04-23 07:37] LABS: Alanine Aminotransferase 13 U/L (0-33); Albumin Level 4.5 g/dL (3.5-5.2); Alkaline Phosphatase 101 U/L (35-105); Anion Gap 14.4 (5-19); Aspartate Amino Transferase 23 U/L (0-32); Blood Urea Nitrogen 13 mg/dL (6-20); Calcium 10.2 mg/dL (8.5-10.5); Carbon Dioxide 25 mmol/L (22-29); Chloride 96 mmol/L (98-107); Globulin 2.7 g/dL (1.3-4.6); Glomerular Filtration Rate 85.6 mL/min (90-130); Glucose 102 mg/dL (65-115); Osmolality Calculated 272 mOsm/kg (285-295); Potassium 4.4 mmol/L (3.5-5.1); Sodium 131 mmol/L (136-145); Total Bilirubin 0.2 mg/dL (0.15-1.2); Total Protein 7.2 g/dL (6.6-8.7)
[2023-04-23 07:55] LABS: Osmolality Urine 128 mOsm/kg (50-1200)
[2023-04-23 14:00] VITALS: BP 129/95; PULSE 83; RESP 20; TEMP 36.6; O2SAT 97
--- NOTE | 2023-04-23 15:22 | P.NPUPN_ITS ---
Subjective NPU 2 Subjective: Patient presented today reporting that she is doing okay. She reported having auditory hallucinations and feeling [place]. We discussed this being the first day that she had the full dose of increased Geodon to 40 mg p.o. twice daily. We discussed this being a process that Dr. Paul here tomorrow to monitor her improvement. We discussed the fact that her sodium continues to improve. Mental Status Exam 2 MSE Comments: This is a overweight white female looking older than her stated age in hospital scrubs with limited grooming and eye contact. No abnormal movements except for decreasing psychomotor agitation. More cooperative with exam in mild distress. Speech was normal rate and volume. Mood described as a little better, affect congruent. Thought process linear. Thought content: Patient denied suicidal or homicidal ideation, there were no delusions reported but less paranoia and persecutory delusions noted, she endorsed having some auditory and visual hallucinations. Attention and concentration were limited and memory seem to mostly reliable but none were formally tested. She is alert and oriented times person and place. Insight, judgment and impulse control are impaired. Vitals/I&O/Wt Last Vital Signs Temp 98.1 F 04/22/23 19:56 Pulse 106 H 04/22/23 19:56 Resp 16 04/22/23 19:56 BP 163/94 04/22/23 19:56 Pulse Ox 97 04/22/23 19:56 O2 Del Method Room Air 04/22/23 19:56 Data NPU 04/18/23 16:02 04/24/23 07:13 A&P Assessment and plan (1) Acute psychosis: (2) Hyponatremia: (3) History of schizophrenia: Plan This is a 57-year-old white female with a long history of psychosis and reported schizophrenia with genetic loading for mental health and addiction issues who presents reporting having been on her medication but looking like she has not been taking it regularly based on the numbers with significant hyponatremia and confusion. Symptoms. 1. Encourage individual, group and milieu therapy. 2. Recommend sober living treatment at the highest level of care to which the patient is willing to commit. 3. Continue q-15 minute checks for safety.? 4.? Continue current medication. Except discontinued thiothixene and started Geodon 20 mg p.o. twice daily with a plan to titrate to effect. Increased Geodon to 40 twice daily 5.? Appreciate hospitalist consult and will follow recommendations for treatment of her hyponatremia as indicated. Involuntary Hold Information 2 96 Hour Hold: 96 Hour Involuntary Admission: No Attestations NPU 2 Medical Necessity Statement*: Inpatient hospitalization is medically necessary and deemed to be the clinically appropriate intervention at this time. The patient will be evaluated and medications will be initiated and titrated upwards as clinically indicated. His likely length of stay is 2-4 days. Coding Level of Care Code Acute Code for [facility] Diagnoses Acute psychosis F23 Hyponatremia E87.1 History of schizophrenia Z86.59
[2023-04-23 17:36] VITALS: BP 129/95; PULSE 83; RESP 20; TEMP 36.6; O2SAT 97
[2023-04-23] MEDS: ziprasidone hcl 20 mg Capsule 40 MG PO (17:37)
[2023-04-23] MEDS: atorvastatin 40 mg Tablet 20 MG PO (20:17)
[2023-04-23] MEDS: quetiapine 25 mg Tablet 50 MG PO (20:17)
[2023-04-23 20:25] VITALS: BP 156/91; PULSE 77; RESP 18; TEMP 36.7; O2SAT 94
[2023-04-24] MEDS: quetiapine 25 mg Tablet 50 MG PO ×2 (02:22→20:08)
[2023-04-24] MEDS: nicotine 4 mg lozenge MUCOUS MEM ×7 (06:37→19:31)
[2023-04-24] MEDS: benztropine 1 mg Tablet PO ×2 (07:32→17:11)
[2023-04-24] MEDS: sodium chloride 1 gm Tablet PO ×3 (07:32→20:09)
[2023-04-24] MEDS: ziprasidone hcl 20 mg Capsule 40 MG PO ×2 (07:33→17:14)
[2023-04-24] MEDS: ibuprofen 600 mg Tablet PO ×2 (07:33→15:17)
[2023-04-24] MEDS: magnesium hydroxide 30 mL UDC PO (07:33)
[2023-04-24 07:50] LABS: Alanine Aminotransferase 13 U/L (0-33); Albumin Level 4.3 g/dL (3.5-5.2); Alkaline Phosphatase 94 U/L (35-105); Blood Urea Nitrogen 12 mg/dL (6-20); Calcium 10.1 mg/dL (8.5-10.5); Carbon Dioxide 22 mmol/L (22-29); Chloride 96 mmol/L (98-107); Globulin 2.6 g/dL (1.3-4.6); Glomerular Filtration Rate 102.3 mL/min (90-130); Glucose 117 mg/dL (65-115); Osmolality Calculated 273 mOsm/kg (285-295); Sodium 131 mmol/L (136-145); Total Bilirubin 0.4 mg/dL (0.15-1.2); Total Protein 6.9 g/dL (6.6-8.7)
[2023-04-24 07:52] LABS: Anion Gap 17.8 (5-19); Aspartate Amino Transferase 24 U/L (0-32); Potassium 4.8 mmol/L (3.5-5.1)
[2023-04-24] MEDS: CLONazepam 1 mg Tablet PO ×2 (07:52→17:11)
[2023-04-24 14:00] VITALS: BP 169/89; PULSE 88; RESP 18; TEMP 36.8; O2SAT 99
--- NOTE | 2023-04-24 16:49 | PM.MISC ---
Miscellaneous Note Purpose of Documentation: Hyponatremia, peripheral follow-up Note: Following up peripherally for hyponatremia. Patient's sodium level has been gradually increasing to 131. Seems to be stable over the last 2 days. Will stop urea tablets. Continue with oral salt tablets 1 g 3 times daily. 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 Should have a repeat CMP in a week after discharge. Care plan discussed in detail with patient's RN. Medicine will sign off please call back with any questions.
--- NOTE | 2023-04-24 17:10 | W.PM.NPUPNS ---
Subjective NPU Subjective: 57-year-old white female with a history of psychosis and methamphetamine use admitted with psychosis directly from a drug rehabilitation facility. Patient had reported that she was feeling better on Geodon. She had admitted that she had not been taking her Navane as stated. She was compliant on the milieu. She reported no side effects from her Geodon. Patient continued to remain isolative on the milieu. She had reported that her thoughts were more clear. She had reported along history of Klonopin use for anxiety. The patient had admitted to not being compliant with Navane and that this was unlikely to have been the cause of her hyponatremia. She had admitted that her self-care had been limited with some weight loss and that bad nutrition may have been the reason for her diminished sodium. Mental Status Exam MSE Comments: This is a overweight white female looking older than her stated age in hospital scrubs with limited grooming and eye contact. No abnormal movements except for psychomotor agitation. She was cooperative with exam in mild distress. Speech was normal rate and volume. Mood described as a better, affect was somewhat flat. Thought process linear. Thought content: Patient denied suicidal or homicidal ideation, there were no delusions reported but likely paranoia and persecutory delusions noted; she denied any auditory or visual hallucinations and did not appear to be responding to internal stimuli. Attention and concentration were limited and memory seem to mostly reliable but none were formally tested. She is alert and oriented times person and place. Insight, judgment and impulse control are impaired. Vitals/I&O/Wt Last Vital Signs Temp 98.2 F 04/24/23 14:00 Pulse 88 04/24/23 14:00 Resp 18 04/24/23 14:00 BP 169/89 04/24/23 14:00 Pulse Ox 99 04/24/23 14:00 O2 Del Method Room Air 04/23/23 20:25 Data NPU 04/18/23 16:02 04/24/23 07:13 A&P Assessment and plan (1) Acute psychosis: (2) Hyponatremia: (3) History of schizophrenia: Plan This is a 57-year-old white female with a long history of psychosis and reported schizophrenia with genetic loading for mental health and addiction issues who presents reporting having been on her medication but looking like she has not been taking it regularly based on the numbers with significant hyponatremia and confusion. Symptoms. 1. Encourage individual, group and milieu therapy. 2. Recommend sober living treatment at the highest level of care to which the patient is willing to commit. 3. Continue q-15 minute checks for safety.? 4.? Continue Geodon 40mg bid. 5.? Appreciate hospitalist consult and will follow recommendations for treatment of her hyponatremia as indicated. Involuntary Hold Information 96 Hour Hold: 96 Hour Involuntary Admission: No Attestations NPU Medical Necessity Statement*: Inpatient hospitalization is medically necessary and deemed to be the clinically appropriate intervention at this time. The patient will be evaluated and medications will be initiated and titrated upwards as clinically indicated. His likely length of stay is 2-4 days. Coding Level of Care Code Acute Code for [facility] Diagnoses Acute psychosis F23 Hyponatremia E87.1 History of schizophrenia Z86.59
[2023-04-24] MEDS: atorvastatin 40 mg Tablet 20 MG PO (20:08)
[2023-04-24] MEDS: acetaminophen 325 mg Tablet 650 MG PO (20:25)
[2023-04-24 20:26] VITALS: BP 153/98; PULSE 79; RESP 18; TEMP 36.7; O2SAT 98
[2023-04-24] MEDS: CELEcoxib 200 mg Capsule PO (20:52)
[2023-04-25 06:00] VITALS: BP 139/93; PULSE 97; RESP 18; O2SAT 97
[2023-04-25] MEDS: nicotine 4 mg lozenge MUCOUS MEM ×3 (07:36→12:58)
[2023-04-25] MEDS: benztropine 1 mg Tablet PO (09:46)
[2023-04-25] MEDS: CLONazepam 1 mg Tablet PO (09:46)
[2023-04-25] MEDS: CELEcoxib 200 mg Capsule PO (09:46)
[2023-04-25] MEDS: ziprasidone hcl 20 mg Capsule 40 MG PO (09:50)
[2023-04-25] MEDS: ibuprofen 600 mg Tablet PO (10:56)
[2023-04-25] MEDS: sodium chloride 1 gm Tablet PO (11:10)
--- NOTE | 2023-04-25 11:59 | DCPLANNER ---
IMM printed and discussed and gave to pt and placed a copy in pts file.
[2023-04-25 13:39] VITALS: BP 139/93; PULSE 97; RESP 18; O2SAT 97
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
== END 2023-04-25 14:05 | disposition home or self-care (01) | DRG 885 ==
LOC: ER 17:05 → NP 18:09
PROVIDERS: Internal Medicine; Student in an Organized Health Care Education/Training Program; Admitting Provider Psychiatry & Neurology Psychiatry; Emergency Provider Physician Assistant; Visit Provider Psychiatry & Neurology Psychiatry
DX: F17.210 Nicotine dependence, cigarettes, uncomplicated (principal); T50.916A Underdosing of multiple unspecified drugs, medicaments and biological substances, initial encounter; F15.90 Other stimulant use, unspecified, uncomplicated; F23 Brief psychotic disorder; E87.1 Hypo-osmolality and hyponatremia
CPT/HCPCS: 36415; 73502; 80053; 80306; 80307; 82436; 83935; 84133; 84295; 84300; 85025; 97150; 97165; 99285